=== PATIENT | male | born 1990 | race Caucasian/White ===

== ENCOUNTER 2019-05-18 08:58 | Emergency (ER) | payer BC, SELFPAY ==
[2019-05-18 09:09] VITALS: BP 140/92; PULSE 63; RESP 13; TEMP 36.6; O2SAT 99
--- NOTE | 2019-05-18 09:57 | ED_ITS ---
HPI - Neuro Symptoms/Deficit General Chief Complaint: Neuro Symptoms/Deficit Stated Complaint: vision issues/headaches/vertigo/numbness x2 wks Time Seen by Provider: 05/18/19 09:51 Source: patient Mode of arrival: ambulatory Limitations: no limitations History of Present Illness HPI Narrative: Patient is a 29-year-old male who presents with headache he feels like a band around his head ongoing for last 10 days. Also over the weekend he had quite a big bout of vertigo. Every time he stood up he got extremely dizzy lightheaded he never passed out. He still has some her minutes of it. He has no numbness tingling or weakness in his extremities. No chest pain or heart palpitations. No real vomiting. He is able to drink fluids he says he has been drinking at least a gal a day. He has no abdominal pain. He is not wanting anything for pain. He has not taken Tylenol or ibuprofen. Onset (ago): day(s) () On Anticoagulants: No Related Data Home Medications Medication Instructions Recorded Confirmed No Known Home Medications 05/18/19 05/18/19 Allergies Allergy/AdvReac Type Severity Reaction Status Date / Time amoxicillin Allergy Intermediate Rash Verified 05/18/19 10:22 Review of Systems Review of Systems ROS Unobtainable: All systems reviewed & are unremarkable except as noted in HPI and below Constitutional Constitutional: Denies chills, Denies fever(s), Reports headache(s), Denies lethargy and Denies weakness Eyes Eyes: Denies change in vision, Denies eye discharge, Denies irritation and Denies loss of vision ENT Ears, Nose, Mouth, and Throat: Denies change in voice, Reports vertigo, Reports headache(s), Denies neck pain and Denies sore throat Cardiovascular Cardiovascular: Denies dyspnea and Denies dyspnea on exertion Respiratory Respiratory: Denies cough, Denies dyspnea, Denies dyspnea on exertion and Denies wheezing Gastrointestinal Gastrointestinal: Denies abdominal pain, Denies change in bowel habits, Denies diarrhea, Denies nausea and Denies vomiting Genitourinary Genitourinary: Denies hematuria, Denies flank pain, Denies urinary incontinence and Denies urinary urgency Musculoskeletal Musculoskeletal: Denies abnormal gait, Denies deformity and Denies neck pain Integumentary/Breasts Skin/Breast: Denies pruritus, Denies erythema, Denies rash and Denies wounds Neurologic Neurologic: Denies abnormal speech, Denies abnormal gait, Reports vertigo, Reports headache(s), Denies lack of coordination, Denies loss of vision, Denies seizure-like activity and Denies weakness Allergic/Immunologic Allergic/Immunologic: Denies wheezing [facility] Medical History Patient denies significant medical history (Acute) Social History (Updated 05/18/19 @ 10:00 by Marta Nair DO) Smoking Status: Current every day smoker alcohol intake: current substance use type: does not use Social History Smoking Status: Current every day smoker alcohol intake: current substance use type: does not use Exam Initial Vital Signs Initial Vital Signs: Vital Signs Temperature 97.8 F 05/18/19 09:09 Pulse Rate 63 05/18/19 09:09 Respiratory Rate 13 05/18/19 09:09 Blood Pressure 140/92 H 05/18/19 09:09 Pulse Oximetry 99 05/18/19 09:09 GENERAL: Well-appearing, well-nourished and in no acute distress. HEENT: Head atraumatic,EOMI, pupils reactive, face symmetric, moist mucous membranes CARDIOVASCULAR: Regular rate and rhythm without murmurs, rubs or gallops. RESPIRATORY: Breath sounds equal bilaterally, no wheezes rales or rhonchi. ABDOMEN: Soft, nontender. Normoactive bowel sounds all 4 quadrants. No guarding or rebound. EXTREMITIES: Normal range of motion, no clubbing or edema. Neurovascularly intact NEUROLOGICAL: Alert and oriented x4.Normal gait and speech. Cranial nerves II through XII grossly intact. Good [id number], good [id number], strength equal bilaterally, no dysarthria or aphasia, sensation in tact to soft touch kathrine aterally, no visual changes, no facial droop SKIN: Warm, dry, no laceration, no petechiae, no rashes or lesions. Scores NIH Stroke Scale Level of Conciousness: Alert, keenly responsive Ask month/age: Answers both questions correctly. Open/close eyes, close hand: Performs both tasks correctly Best gaze horizontal: Normal Visual matthews: No visual loss Facial palsy: Normal symetrical movement Left arm drift: No drift for full 10 sec Right arm drift: No drift for full 10 sec Left leg drift: No drift for full 10 sec Right leg drift: No drift for full 10 sec Limb ataxia: Absent Sensory on face/arms/legs: Normal, no sensory loss Best language: No aphasia, normal Dysarthria: Normal Extinction or inattention: No abnormality Total NIH Stroke scale score: 0 Course Orders Ordered: ED Orders 05/18/19 10:08 CT head/brain wo con Stat 05/18/19 10:15 Basic Metabolic Panel Stat Complete Blood Count AUTO DIFF Stat Vital Signs Vital signs: Vital Signs - 8 hr 05/18/19 10:52 Pulse Rate 56 L Blood Pressure 125/87 Pulse Oximetry 98 MDM - Neuro Symptoms/Deficit Lab Data Attestation: I reviewed the patient's lab results. Result diagrams: 05/18/19 10:15 05/18/19 10:15 Labs: Lab Results 05/18/19 05/18/19 Range/Units 10:15 10:15 WBC 7.1 (4.5-11.0) X10^3/uL RBC 5.15 (4.5-5.9) X10^6/uL Hgb 15.4 (13.5-17.5) g/dL Hct 44.7 (41-53) % MCV 86.9 (80-100) fL MCH 29.8 (26-34) PG MCHC 34.4 (30-36) % RDW 13.1 (11.6-14.8) % Plt Count 271 (150-400) X10^3/uL Neut % (Auto) 38.7 L (50-75) % Lymph % (Auto) 45.4 H (25-40) % [place] % (Auto) 10.7 (3-14) % Eos % (Auto) 4.2 H (2-4) % Baso % (Auto) 1.0 (0-2) % Neut # (Auto) 2700 (7138-7582) /uL Lymph # (Auto) 3200 (7310-7579) /uL [place] # (Auto) 800 (0-900) /uL Eos # (Auto) 300 (0-450) /uL Baso # (Auto) 100 (0-100) /uL Sodium 141 (137-145) mmol/L Potassium 4.2 (3.4-5.1) mmol/L Chloride 101 (98-107) mmol/L Carbon Dioxide 29 (22-32) mmol/L BUN 14 (9-20) mg/dL Creatinine 1.00 (0.66-1.25) mg/dL Estimated GFR > 60.0 (>60) mL/min BUN/Creatinine Ratio 14.0 (6-22) Glucose 93 (70-100) mg/dL Calcium 9.4 (8.4-10.2) mg/dL Imaging Data CT scan - head: Radiologist's impression: PROCEDURE: CT HEAD/BRAIN WO CON INDICATIONS: headaches vertigo x 10 days TECHNIQUE: Noncontrast 4.5 mm thick angled axial sections acquired from the foramen magnum to the vertex, with coronal and sagittal reformats. For radiation dose reduction, the following was used: automated exposure control, adjustment of mA and/or kV according to patient size. COMPARISON: None. FINDINGS: Image quality: Excellent. CSF spaces: Basal cisterns are patent. No extra-axial fluid collections. Ventricles are normal in size and shape. Brain: No midline shift. No intracranial masses or hemorrhage. Figueredo-white matter interface is normal. Note is made of a prominent cavum septum pellucidum. When discovered in isolation, this is considered to be a developmental variant of no clinical consequence. Skull and face: Calvarium and visualized facial bones are intact, without suspicious lesions. Sinuses: Visualized sinuses and mastoids are clear. IMPRESSION: No imaging explanation is found for this patient's presenting symptoms. Prominent cavum septum pellucidum noted. Dictated by: Bhavin Brantley M.D. on 05/18/2019 at 9:28 MDM Narrative Medical decision making narrative: Patient ambulatory in the ED without any difficulty. The vertigo seems to be completely resolved. He is not want anything for pain for headache. Head CT is negative blood work overall is reassuring. [place]CP [place]. Discharge Plan Departure Patient Disposition: Home Clinical Impression: Headache Qualifiers: Headache type: tension-type Headache chronicity pattern: acute headache Intractability: not intractable Qualified Code(s): G44.209 - Tension-type headache, unspecified, not intractable Discharge Date/Time: 05/18/19 10:54 Instructions: Tension Headache Activity Restrictions/Additional Instructions: *You have been diagnosed with tension-like headache converted *What to do: May require further evaluation by Neurology if he continue to have symptoms. MRI may also be indicated as an outpatient please speak with her PCP about this *Continue to take medications as directed Ibuprofen 600 100 mg every 8 hours if needed for pain *Follow up with your primary care provider in 2-3 days *Return to ER if you should have increasing headache weakness numbness tingling persistent dizziness passing out or any new, worsening or concerning symptoms Prescriptions: No Action No Known Home Medications RF: 0
--- NOTE | 2019-05-18 10:08 | DI.CT.S_ITS ---
PROCEDURE: CT HEAD/BRAIN WO CON INDICATIONS: headaches vertigo x 10 days TECHNIQUE: Noncontrast 4.5 mm thick angled axial sections acquired from the foramen magnum to the vertex, with coronal and sagittal reformats. For radiation dose reduction, the following was used: automated exposure control, adjustment of mA and/or kV according to patient size. COMPARISON: None. FINDINGS: Image quality: Excellent. CSF spaces: Basal cisterns are patent. No extra-axial fluid collections. Ventricles are normal in size and shape. Brain: No midline shift. No intracranial masses or hemorrhage. Figueredo-white matter interface is normal. Note is made of a prominent cavum septum pellucidum. When discovered in isolation, this is considered to be a developmental variant of no clinical consequence. Skull and face: Calvarium and visualized facial bones are intact, without suspicious lesions. Sinuses: Visualized sinuses and mastoids are clear. IMPRESSION: No imaging explanation is found for this patient's presenting symptoms. Prominent cavum septum pellucidum noted. Dictated by: Bhavin Brantley M.D. on 05/18/2019 at 9:28 Approved by: Bhavin Brantley M.D. on 05/18/2019 at 9:29
[2019-05-18 10:21] LABS: Add Manual Diff / Slide Review NO; Basophils Absolute Auto 100 /uL (0-100); Eosinophils Absolute Auto 300 /uL (0-450); Eosinophils Percent Auto 4.2 % (2-4); Hematocrit 44.7 % (41-53); Hemoglobin 15.4 g/dL (13.5-17.5); Lymphocytes Absolute Auto 3200 /uL (1100-4500); Lymphocytes Percent Auto 45.4 % (25-40); Mean Corpuscular HGB Conc 34.4 % (30-36); Mean Corpuscular Hemoglobin 29.8 PG (26-34); Mean Corpuscular Volume 86.9 fL (80-100); Monocytes Absolute Auto 800 /uL (0-900); Monocytes Percent Auto 10.7 % (3-14); Neutrophils Absolute Auto 2700 /uL (1500-7000); Neutrophils Percent Auto 38.7 % (50-75); Platelet Count 271 X10^3/uL (150-400); Red Blood Cell Count 5.15 X10^6/uL (4.5-5.9); Red Cell Distribution Width 13.1 % (11.6-14.8); White Blood Cell Count 7.1 X10^3/uL (4.5-11.0)
[2019-05-18 10:32] LABS: Blood Urea Nitrogen 14 mg/dL (9-20); Calcium 9.4 mg/dL (8.4-10.2); Carbon Dioxide 29 mmol/L (22-32); Chloride 101 mmol/L (98-107); Estimated Glomerular Filt Rate > 60.0 mL/min (>60); Glucose 93 mg/dL (70-100); HEMOLYSIS < 15 (0-50); Potassium 4.2 mmol/L (3.4-5.1); Sodium 141 mmol/L (137-145)
[2019-05-18 10:52] VITALS: BP 125/87; PULSE 56; O2SAT 98
== END 2019-05-18 10:54 | disposition home or self-care (01) ==
PROVIDERS: Emergency Provider Emergency Medicine
DX: G44.209 Tension-type headache, unspecified, not intractable (principal); R42 Dizziness and giddiness
CPT/HCPCS: 36415; 70450; 80048; 85025; 99283; 99284

== ENCOUNTER 2019-10-18 17:34 | Emergency (ER) | payer BC, SELFPAY ==
[2019-10-18 17:37] VITALS: BP 129/76; PULSE 77; RESP 16; TEMP 36.8; O2SAT 97
== END 2019-10-18 19:52 | disposition left against medical advice (07) ==
PROVIDERS: Emergency Provider Emergency Medicine
CPT/HCPCS: 99281